=== PATIENT | male | born 1965 | race Asian ===

== ENCOUNTER 2018-01-02 07:05 | Day surgery (SDC) | payer OTHER ==
[~2018-01-02] VITALS: Ht 165.1 cm; Wt 74.5 kg
[~2018-01-02 07:05] MED LIST: AMLO-512 PO; ATOR40TA28 PO; AZIL1TAB2 PO; CARV25 PO; CETI-290 PO; CHOL200016 PO; DOCU250C91 PO; DOXY25SU3 PO; DULO20CA30 PO; ESCI10TA PO; FLUT16H NASAL; HYDR-2924 PO; MOME13HF IH; MONT10TA21 PO; OMEP20 PO; PRED20 PO; SODIUM CHLORIDE 0.9% 1,000 ML IV ONE; SPIR25 PO
[2018-01-02] MEDS ORDERED: FLUC200T PO (08:08)
[2018-01-02] MEDS ORDERED: TIOT185 IH (08:08)
[2018-01-02] MEDS ORDERED: LOSA50TA37 PO (08:08)
[2018-01-02] MEDS ORDERED: LORA10TA7 PO (08:08)
[2018-01-02] MEDS ORDERED: VITAD1000 PO (08:08)
[2018-01-02] MEDS ORDERED: D-ME118S13 PO (08:08)
[2018-01-02] MEDS ORDERED: MIDAZOLAM HCL 2 MG/2 ML VIAL ONE (08:16)
[2018-01-02] MEDS ORDERED: FentaNYL CITRATE-PF 100 MCG/2 ML VIAL ONE (08:16)
[2018-01-02] MEDS ORDERED: MethylPREDNISolone SOD SUCC 125 MG/2 ML VIAL IVP ONE (09:30)
[2018-01-02] MEDS ORDERED: MethylPREDNISolone SOD SUCC 125 MG/2 ML VIAL ONE (09:55)
[2018-01-02] MEDS ORDERED: BENZOCAINE 20% 50 MCG/SPRAY 57 GM TP ONE (12:00)
[2018-01-02] MEDS ORDERED: ALBUTEROL SULFATE 2.5 MG/0.5 ML NEB SOLUTION NEB ONE (12:00)
[2018-01-02] MEDS ORDERED: LIDOCAINE HCL 2% 30 ML JELLY TP ONE (12:00)
[2018-01-02] MEDS ORDERED: LIDOCAINE HCL 4% 50 ML SOLUTION TP ONE (12:00)
[2018-01-02] MEDS ORDERED: OXYGEN THERAPY IH SCH (20:00)
== END 2018-01-02 11:00 | disposition home or self-care (01) ==
LOC: SURGERY 07:05
PROVIDERS: ATTEND Internal Medicine Critical Care Medicine
DX: J38.4 Edema of larynx (principal); B37.0 Candidal stomatitis; J84.111 Idiopathic interstitial pneumonia, not otherwise specified; J44.9 Chronic obstructive pulmonary disease, unspecified; I10 Essential (primary) hypertension; E78.00 Pure hypercholesterolemia, unspecified; M19.90 Unspecified osteoarthritis, unspecified site; K21.9 Gastro-esophageal reflux disease without esophagitis; Z90.89 Acquired absence of other organs; Z88.6 Allergy status to analgesic agent; Z79.891 Long term (current) use of opiate analgesic; Z88.8 Allergy status to other drugs, medicaments and biological substances; Z87.891 Personal history of nicotine dependence; Z79.899 Other long term (current) drug therapy; Z98.890 Other specified postprocedural states
CPT/HCPCS: 31623; 31624; 71045; 87015; 87070; 87101; 87205; 87206; 87220; 88108; 88312; J2250; J2930; J3010; J7030

== ENCOUNTER → 2019-02-06 | Outpatient (CLI) | payer OTHER ==
[~2019-02-06] MED LIST changes: -AMLO-512 PO; +AMLO10TA7 PO; -CETI-290 PO; +CETI10TA59 PO; -CHOL200016 PO; +CHOL200059 PO; +FLUC200T PO; +LORA10TA7 PO; +LOSA50TA64 PO; +PROM118S4 PO; -SODIUM CHLORIDE 0.9% 1,000 ML IV ONE; +TIOT185 IH; +VITAD1000 PO
== END | disposition home or self-care (01) ==
LOC: RADMN 13:08
PROVIDERS: ATTEND Internal Medicine Nephrology
DX: I67.82 Cerebral ischemia (principal); I67.2 Cerebral atherosclerosis; J34.1 Cyst and mucocele of nose and nasal sinus
CPT/HCPCS: 70450

== ENCOUNTER 2022-05-12 06:35 | Day surgery (SDC) | payer OTHER ==
[~2022-05-12] VITALS: Ht 165.1 cm; Wt 71.3 kg
[~2022-05-12 06:35] MED LIST changes: +AMLO-258 PO; -AMLO10TA7 PO; +CETI-450 PO; -CETI10TA59 PO; +CHOL100018 PO; +CHOL200016 PO; -CHOL200059 PO; -DULO20CA30 PO; +DULO20CA71 PO; +ESCI-8 PO; -ESCI10TA PO; -FLUC200T PO; +FLUC200T85 PO; -FLUT16H NASAL; +FLUT16SP NASAL; -HYDR-2924 PO; +HYDR50TA36 PO; +LOSA-382 PO; -LOSA50TA64 PO; -MOME13HF IH; +MOME13HF11 IH; +MONT-35 PO; -MONT10TA21 PO; +PRED-554 PO; -PRED20 PO; -PROM118S4 PO; +PROM118S5 PO; +SODIUM CHLORIDE 0.9% 1,000 ML IV ONE; +SPIR-37 PO; -SPIR25 PO; -VITAD1000 PO
[2022-05-12] MEDS ORDERED: LIDOCAINE 4% 50 ML SOLUTION TP ONE (06:36)
[2022-05-12] MEDS ORDERED: BENZOCAINE 20% 50 MCG/SPRAY 57 GM TP ONE (06:36)
[2022-05-12] MEDS ORDERED: LIDOCAINE 2% 11 ML JELLY TP ONE (06:36)
[2022-05-12 06:57] LABS: COVID AG,FIA SOURCE NASAL SWAB
[2022-05-12] MEDS ORDERED: SODIUM CHLORIDE 0.9% 1,000 ML ONE (07:11)
[2022-05-12] MEDS ORDERED: MIDAZOLAM HCL 5 MG/ML VIAL ONE (08:08)
[2022-05-12] MEDS ORDERED: FentaNYL CITRATE PF 100 MCG/2 ML VIAL ONE (08:08)
[2022-05-12 08:21] LABS: GLUCOMETER DEV NAME(LOC) SDS.; GLUCOSE,POINT OF CARE 105 MG/DL (70-110)
[2022-05-12] MEDS ORDERED: CHL25 PO (09:26)
[2022-05-12] MEDS ORDERED: OMEG-135 PO (09:26)
[2022-05-12] MEDS ORDERED: MORP20CA16 PO (09:26)
[2022-05-12] MEDS ORDERED: METO50 PO (09:26)
[2022-05-12] MEDS ORDERED: DICL100G51 TP (09:26)
[2022-05-12] MEDS ORDERED: FURO20 PO (09:26)
[2022-05-12] MEDS ORDERED: TAMS-13 PO (09:26)
[2022-05-12] MEDS ORDERED: CETI-450 PO (09:26)
[2022-05-12] MEDS ORDERED: ALBU90AE IH (09:26)
[2022-05-12] MEDS ORDERED: LUBI8CAP PO (09:26)
[2022-05-12] MEDS ORDERED: NIFE90TA91 PO (09:26)
[2022-05-12] MEDS ORDERED: MOME13HF11 IH (09:26)
[2022-05-12] MEDS ORDERED: MORP15TA43 PO (09:26)
[2022-05-12] MEDS ORDERED: CLON1PAT13 TD (09:26)
[2022-05-12] MEDS ORDERED: VALS160T2 PO (09:26)
[2022-05-12] MEDS ORDERED: MethylPREDNISolone SOD SUCC 125 MG/2 ML VIAL IVP ONE (09:45)
[2022-05-12] MEDS ORDERED: MethylPREDNISolone SOD SUCC 125 MG/2 ML VIAL ONE (10:12)
[2022-05-12] MEDS ORDERED: OXYGEN THERAPY IH SCH (20:00)
== END 2022-05-12 11:40 | disposition home or self-care (01) ==
LOC: SURGERY 06:35
PROVIDERS: ATTEND Internal Medicine Critical Care Medicine
DX: R05.3 Chronic cough (principal); R06.2 Wheezing; R04.2 Hemoptysis; J98.11 Atelectasis; B37.0 Candidal stomatitis; J44.9 Chronic obstructive pulmonary disease, unspecified; G47.30 Sleep apnea, unspecified; N18.4 Chronic kidney disease, stage 4 (severe); Z20.822 Contact with and (suspected) exposure to COVID-19; Z79.899 Other long term (current) drug therapy; Z98.890 Other specified postprocedural states
CPT/HCPCS: 31623; 82962; 87101; 87220; 87070; 31624; 71045; 87015; 87426; 87206; J3010; J2930; J2250; Q9967; J7030; C9803; 88108; 88305; Z7610